=== PATIENT | male | born 2000 | race Caucasian/White ===

== ENCOUNTER 2020-07-31 17:46 | Emergency (ER) | payer SELFPAY | END 2020-07-31 18:30 | disposition home or self-care (01) | LOC: MADERS 17:46 | DX: K13.0 Diseases of lips (principal); F17.210 Nicotine dependence, cigarettes, uncomplicated | CPT/HCPCS: 99283 ==

== ENCOUNTER 2020-08-03 21:38 | Emergency (ER) | payer SELFPAY ==
[2020-08-03] MEDS ORDERED: Lidocaine 1% w/Epinephrine 1:100K 20 ML VIAL ONE (22:02)
== END 2020-08-03 22:40 | disposition home or self-care (01) ==
LOC: MADERS 21:38
DX: K13.0 Diseases of lips (principal); F17.210 Nicotine dependence, cigarettes, uncomplicated
CPT/HCPCS: 10060

== ENCOUNTER 2021-01-09 16:10 | Emergency (ER) | payer SELFPAY ==
[2021-01-09] MEDS ORDERED: Lidocaine 1% w/Epinephrine 1:100K 20 ML VIAL ONE (16:43)
[2021-01-09] MEDS ORDERED: Boostrix 0.5 ML (Tdap) VIAL ONE (17:02)
[2021-01-09] MEDS ORDERED: Ibuprofen 600 MG TAB ONE (17:13)
== END 2021-01-09 17:48 | disposition home or self-care (01) ==
LOC: MADERS 16:10
DX: L02.413 Cutaneous abscess of right upper limb (principal); F17.210 Nicotine dependence, cigarettes, uncomplicated
CPT/HCPCS: 10060; 87070; 87077; 87186; 87205; 90471; 90715

== ENCOUNTER 2021-01-11 18:36 | Emergency (ER) | payer SELFPAY | END 2021-01-11 20:05 | disposition home or self-care (01) | LOC: MADERS 18:36 | DX: Z48.817 Encounter for surgical aftercare following surgery on the skin and subcutaneous tissue (principal); F17.210 Nicotine dependence, cigarettes, uncomplicated | CPT/HCPCS: 99282 ==

== ENCOUNTER 2021-11-01 06:06 | Emergency (ER) | payer SELFPAY ==
[2021-11-01] MEDS ORDERED: Ondansetron ODT 4 MG TAB ONE (06:40)
[2021-11-01] MEDS ORDERED: Diphenoxylate HCl/Atropine Tablet ONE (06:40)
== END 2021-11-01 07:03 | disposition home or self-care (01) ==
LOC: MADERS 06:06
DX: R11.2 Nausea with vomiting, unspecified (principal); R19.7 Diarrhea, unspecified; F17.210 Nicotine dependence, cigarettes, uncomplicated
CPT/HCPCS: 71045; 93005; Q0162

== ENCOUNTER 2021-11-27 16:49 | Emergency (ER) | payer SELFPAY ==
[2021-11-28 15:42] LABS: SARS-CoV-2 PCR by NAA Not Detected (NotDetected)
== END 2021-11-27 18:22 | disposition home or self-care (01) ==
LOC: MADERS 16:49
DX: J06.9 Acute upper respiratory infection, unspecified (principal); F17.210 Nicotine dependence, cigarettes, uncomplicated; Z20.822 Contact with and (suspected) exposure to COVID-19
CPT/HCPCS: 71046; 87804; U0003; U0005

== ENCOUNTER 2022-06-18 16:12 | Emergency (ER) | payer SELFPAY | END 2022-06-18 18:44 | disposition home or self-care (01) | LOC: MADERS 16:12 | DX: J06.9 Acute upper respiratory infection, unspecified (principal); F17.210 Nicotine dependence, cigarettes, uncomplicated | CPT/HCPCS: 99283 ==

== ENCOUNTER 2023-04-22 20:33 | Emergency (ER) | payer SELFPAY ==
[2023-04-22] MEDS ORDERED: Sulfameth/Trimethoprim DS 800-160mg TAB ONE (21:01)
== END 2023-04-22 21:07 | disposition home or self-care (01) ==
LOC: MADERS 20:33
DX: L03.113 Cellulitis of right upper limb (principal); L02.413 Cutaneous abscess of right upper limb; F17.210 Nicotine dependence, cigarettes, uncomplicated
CPT/HCPCS: 87070; 87077; 87186; 87205; 99283